=== PATIENT | female | born 1995 | race Caucasian/White ===

== ENCOUNTER 2019-03-18 13:00 | Emergency (ER) | payer MEDICAID ==
[~2019-03-18] VITALS: Ht 152.4 cm; Wt 89.4 kg
[2019-03-18 13:06] VITALS: BP 128/77; Ht 152.4 cm; Wt 89.4 kg
== END 2019-03-18 17:01 | disposition left against medical advice (07) ==
LOC: ED 13:00
DX: Z53.21 Procedure and treatment not carried out due to patient leaving prior to being seen by health care provider (principal)